=== PATIENT | female | born 1955 ===

== ENCOUNTER 2023-02-14 09:11 | Day surgery (SDC) | payer MEDICARE, OTHER ==
[2023-02-12 11:21] VITALS: BMI 37.5
== END 2023-02-14 14:35 | disposition home or self-care (01) ==
LOC: CSHSDC 09:11
PROVIDERS: ATTEND Podiatrist Foot & Ankle Surgery
PROC: 0HBRXZZ Excision of Toe Nail, External Approach (ICD-10-PCS; principal; 2023-02-14)
PROC: 0SGM04Z Fusion of Right Metatarsal-Phalangeal Joint with Internal Fixation Device, Open Approach (ICD-10-PCS; 2023-02-14)
DX: M20.11 Hallux valgus (acquired), right foot (principal); L60.0 Ingrowing nail; I49.9 Cardiac arrhythmia, unspecified; I11.0 Hypertensive heart disease with heart failure; I50.32 Chronic diastolic (congestive) heart failure; E66.01 Morbid (severe) obesity due to excess calories; Z68.36 Body mass index [BMI] 36.0-36.9, adult; I48.91 Unspecified atrial fibrillation; E78.00 Pure hypercholesterolemia, unspecified; D64.9 Anemia, unspecified; J45.909 Unspecified asthma, uncomplicated; K21.9 Gastro-esophageal reflux disease without esophagitis; Z79.01 Long term (current) use of anticoagulants; Z88.2 Allergy status to sulfonamides; Z88.5 Allergy status to narcotic agent; Z79.899 Other long term (current) drug therapy
CPT/HCPCS: 11750; 28750; 73620; C1713 ×9